=== PATIENT | female | born 1955 | race Caucasian/White ===

== ENCOUNTER → 2016-09-21 | Outpatient (CLI) | payer OTHER ==
[~2016-09-21] MED LIST: IOPAMIDOL (ISOVUE-300) 100 ML BTL IV ONE
--- NOTE | 2016-09-21 11:00 | CT ---
CT Abdomen and Pelvis Without and With Contrast History: History of probable complex cyst right kidney on prior CT. Follow up. Comparison: CT March 2016 and ultrasound June 2016. Technique: 3 mm helical images were obtained of the abdomen and pelvis from the diaphragm through the symphysis pubis. This was done without and with intravenous contrast. The post intravenous contrast images were obtained in arterial, portal venous, and delayed phases. Multiplanar reformation was perf ormed. Radiation dose reduction technique was utilized. Contrast administration was 85 mL Isovue-300 contrast. Findings: Abdomen: The lung bases are clear. No focal liver lesion. Gallbladder is unremarkable. Pancreas is no rmal in size and appearance. Calcification is seen in the spleen from prior granulomatous disease. Jace th adrenal glands are normal in size and appearance. There is a mildly complex cyst in the junction m id to inferior pole of the right kidney laterally adjacent to an area of cortical scarring. This lesi on measures 13 x 11 mm and is stable in size. Hounsfield units are approximately 40. I believe this c orrelates to the cyst seen on the ultrasound with a possible tiny septation adjacent to an area of co rtical thinning 12 x 10 mm. There is also a smaller renal cortical cyst in the medial inferior pole o f the right kidney measuring 9 mm with Hounsfield units of 5. A tiny exophytic renal cortical cyst is seen off the inferior pole laterally measuring 4 mm. No evidence for solid mass in the right kidney. There is a subtle 3 mm focus of very low signal intensity in the lateral cortex mid pole left kidney corresponding to the area of increased echogenicity on ultrasound indicating a small angiomyolipoma, benign. No suspicious solid mass is seen in the left kidney. No evidence for hydronephrosis in eithe r kidney. No significant abdominal lymphadenopathy. Pelvis: No evidence for diverticulitis. No evidence for small bowel obstruction. No significant free fluid in the pelvis. Bladder is unremarkable. No aggressive bone lesion. Impression: 13 x 11 mm benign minimally complex renal cortical cyst junction of mid to inferior raya e right kidney and another smaller 9 mm renal cortical cyst inferior pole right kidney. 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 Otherwise unremarkable CT of the abdomen and pelvis with and witho ut IV contrast. This was also reviewed by Dr. Gene Tejeda who concurs.
== END ==
LOC: FIMAGING 08:45
PROVIDERS: ATTEND Family Medicine
DX: N28.1 Cyst of kidney, acquired (principal); N28.89 Other specified disorders of kidney and ureter
CPT/HCPCS: Q9967

== ENCOUNTER 2017-09-11 10:14 | Emergency (ER) | payer OTHER ==
--- NOTE | 2017-09-11 12:24 | EDPHY ---
H & P Time Seen by Provider: 09/11/17 12:18 HPI/ROS: Chief complaint. Abdominal pain HPI. 7-year-old female with 1 day history of right lower quadrant abdominal pain. Hurts to move. No fever, vomiting, diarrhea. No urinary symptoms. Seen by regular physician this morning and concern was for appendicitis. She does have a history of diverticulitis. No chest discomfort or trouble breathing. ROS Constitutional. no fever/chills, no weakness Eyes. no problems with vision ENT. no sore throat, no nasal drainage Cardiovascular. no chest pain Respiratory. no shortness of breath, no cough Abdominal. Right lower quadrant abdominal . no problems urinating MS. no calf pain/swelling, no neck/back pain, no joint pain Skin. no rash Lymph. no swollen glands Neuro. no headache, no dizziness, no difficulty walking or with speech Past Medical/Surgical History: Diverticulitis, Social History: , nonsmoker, no alcohol Smoking Status: Former smoker Physical Exam: General Appearance: Alert pleasant well-developed female mild distress vital signs are stable Eyes: Pupils equal and round no pallor or injection. ENT, Mouth: Mucous membranes are moist. Respiratory: There are no retractions, lungs are clear to auscultation. Cardiovascular: Regular rate and rhythm. Gastrointestinal: Abdomen is soft but tender in the right lower quadrant at McBurney's point, no masses, bowel sounds normal. Neurological: Awake and alert, sensory and motor exams grossly normal. Skin: Warm and dry, no rashes. Musculoskeletal: Neck is supple nontender. Extremities symmetrical, full range of motion. Psychiatric: Patient is oriented X 3, there is no agitation. Constitutional: Initial Vital Signs Temperature (C) 37.1 C 09/11/17 10:25 Heart Rate 79 09/11/17 10:25 Respiratory Rate 18 09/11/17 10:25 Blood Pressure 141/81 H 09/11/17 10:25 O2 Sat (%) 96 09/11/17 10:25 O2 Delivery Mode Room Air Allergies/Adverse Reactions: No Known Allergies Allergy (Verified 09/11/17 10:32) Home Medications: Medication Instructions Recorded Compounded Estrogen 1 garrick TP DAILY 03/28/14 Compounded Progesterone 1 garrick TP HS 03/28/14 Sulfamethox/Tmp 800/160 mg 1 tab PO BID #14 tab 09/11/17 [Bactrim Ds] metroNIDAZOLE [Flagyl 500 mg (*)] 500 mg PO QID #28 tab 09/11/17 Medical Decision Making - Diagnostics Imaging Results: Imaging Impressions Abdomen CT 09/11/17 12:52 Impression: 1. Acute diverticulitis of the proximal sigmoid colon. 2. Appendix not identified although no secondary evidence of appendicitis. 3. No drainable abscess, bowel obstruction, or pneumoperitoneum. 4. Recommend follow-up colonoscopy when the patient's medical condition permits. Findings and recommendations discussed with Emergency Department physician, Billy Holt M.D., at 1410 hours, on September 11, 2017. Final report concurs with initial preliminary interpretation. E:amm CT abdomen cannot see appendix. It does appear she has diverticulitis of the sigmoid colon Procedures: IV normal saline. IV Invanz ED Course/Re-evaluation: I consulted and discussed the case with Dr. Myers, surgery who sees The patient in the emergency department Patient is offered admission and surgery however would like to be treated as an outpatient. The patient, Dr. Myers, and I discussed need close follow-up and will treat the diverticulitis but if she has worsening pain in the right lower quadrant did see her again. Plan is for recheck in 1 day if not improved; patient expresses understanding and agreement Differential Diagnosis: I considered urinary tract infection, diverticulitis, appendicitis - Data Points Laboratory Results: Laboratory Results 09/11/17 12:20 09/11/17 12:20 09/11/17 09/11/17 09/11/17 12:40 12:20 12:20 WBC 12.81 10^3/uL H 10^3/uL (3.80-9.50) RBC 4.60 10^6/uL 10^6/uL (4.18-5.33) Hgb 14.0 g/dL g/dL (12.6-16.3) Hct 41.8 % % (38.0-47.0) MCV 90.9 fL fL (81.5-99.8) MCH 30.4 pg pg (27.9-34.1) MCHC 33.5 g/dL g/dL (32.4-36.7) RDW 12.6 % % (11.5-15.2) Plt Count 264 10^3/uL 10^3/uL (150-400) MPV 11.2 fL fL (8.7-11.7) Neut % (Auto) 85.0 % H % (39.3-74.2) Lymph % (Auto) 9.0 % L % (15.0-45.0) Wheeler % (Auto) 5.2 % % (4.5-13.0) Eos % (Auto) 0.1 % L % (0.6-7.6) Baso % (Auto) 0.2 % L % (0.3-1.7) Nucleat RBC Rel Count 0.0 % % (0.0-0.2) Absolute Neuts (auto) 10.89 10^3/uL H 10^3/uL (1.70-6.50) Absolute Lymphs (auto) 1.15 10^3/uL 10^3/uL (1.00-3.00) Absolute Monos (auto) 0.67 10^3/uL 10^3/uL (0.30-0.80) Absolute Eos (auto) 0.01 10^3/uL L 10^3/uL (0.03-0.40) Absolute Basos (auto) 0.03 10^3/uL 10^3/uL (0.02-0.10) Absolute Nucleated RBC 0.00 10^3/uL 10^3/uL (0-0.01) Immature Gran % 0.5 % % (0.0-1.1) Immature Gran # 0.06 10^3/uL 10^3/uL (0.00-0.10) Sodium 143 mEq/L mEq/L (135-145) Potassium 4.0 mEq/L mEq/L (3.5-5.2) Chloride 104 mEq/L mEq/L (97-110) Carbon Dioxide 25 mEq/l mEq/l (22-31) Anion Gap 14 mEq/L mEq/L (8-16) BUN 15 mg/dL mg/dL (7-23) Creatinine 0.7 mg/dL mg/dL (0.6-1.0) Estimated GFR > 60 Glucose 98 mg/dL mg/dL (70-100) Calcium 10.0 mg/dL mg/dL (8.5-10.4) Urine Color YELLOW Urine Appearance CLEAR Urine pH 6.0 (5.0-7.5) Ur Specific [place] 1.017 (1.002-1.030) Urine Protein NEGATIVE (NEGATIVE) Urine Ketones 1+ H (NEGATIVE) Urine Blood 1+ H (NEGATIVE) Urine Nitrate NEGATIVE (NEGATIVE) Urine Bilirubin NEGATIVE (NEGATIVE) Urine Urobilinogen NEGATIVE EU EU (0.2-1.0) Ur Leukocyte Esterase NEGATIVE (NEGATIVE) Urine RBC 5-10 /hpf H /hpf (0-3) Urine WBC 1-3 /hpf /hpf (0-3) Ur Epithelial Cells TRACE /lpf /lpf (NONE-1+) Urine Bacteria 1+ /hpf H /hpf (NONE SEEN) Urine Mucus 2+ /lpf H /lpf (NONE-1+) Urine Glucose NEGATIVE (NEGATIVE) Medications Given: Discontinued Medications Sodium Chloride (Ns) 1,000 mls @ 0 mls/hr IV EDNOW ONE; Wide Open PRN Reason: Protocol Stop: 09/11/17 12:53 Last Admin: 09/11/17 12:25 Dose: 1,000 mls Departure - Departure Disposition: Home, Routine, Self-Care Clinical Impression: Diverticulitis Condition: Good Instructions: Diverticulitis Diet (ED), Diverticulitis (ED) Additional Instructions: Easy diet. Began antibiotics orally tomorrow. Return for worsening symptoms. Recheck in 1 day if not improving Referrals: Tabatha Berumen MD [Primary Care Provider] - 1 day, if not improved Shyam Myers MD [Medical Doctor] - 1 day, if not improved Prescriptions: metroNIDAZOLE [Flagyl 500 mg (*)] 500 mg PO QID #28 tab Sulfamethox/Tmp 800/160 mg [Bactrim Ds] 1 tab PO BID #14 tab
[2017-09-11] MEDS ORDERED: NS 1,000 ML IV ONE (12:52)
[2017-09-11 13:01] LABS: PLATELET COUNT 264 10^3/uL (150-400)
[2017-09-11] MEDS ORDERED: IOPAMIDOL (ISOVUE-300) 100 ML BTL ONE (13:29)
[2017-09-11 14:12] VITALS: RESP 16; TEMP 99
--- NOTE | 2017-09-11 16:02 | PDCONSULT ---
Director Medicare Sales Note: Chief complaint: Abdominal pain History of present illness: This is a 61-year-old woman who presents to the emergency room after being seen by primary care doctor with abdominal pain possible appendicitis. Previous history of diverticulitis treated with antibiotics successfully to 1.5 year ago. She reports several day history of diarrhea prior to having this generalized abdominal pain. She felt bloated this morning and cannot localize the pain in anyone spot. White blood cell count in the emergency room 12,000 with an exam or consistent with appendicitis and diverticulitis. CT scan of the abdomen and pelvis personally reviewed on PACS and with radiologist shows diverticulitis of the sigmoid/descending colon. There is no obvious appendicitis or free fluid in the right lower quadrant suggestive of appendiceal inflammation Past medical history: None Past surgical history: Medications: Estrogen and progesterone No known drug allergies Family history significant for heart disease in her father Social history 2 children alive and well. Smoked briefly 35 years ago. Occasional social alcohol use Review of systems significant for diarrhea otherwise reviewed and all others are negative. Objective: Alert oriented to person place time Clear to auscultation bilaterally Regular rate and rhythm Abdomen soft nondistended normoactive bowel sounds. No hepatosplenomegaly well- healed incision no herniation. No peritoneal signs but she is mildly tender to the right and left of the midline at the level of her umbilicus. Extremities without edema 2+ over 2+ dorsalis and radial pulses Skin normal turgor and tone no rashes No lymphadenitis Trachea midline no JVD Extraocular motions intact Normal affect mood 09/11/17 12:20 09/11/17 12:[address] 09/11/17 12:52 Impression: 1. Acute diverticulitis of the proximal sigmoid colon. 2. Appendix not identified although no secondary evidence of appendicitis. 3. No drainable abscess, bowel obstruction, or pneumoperitoneum. 4. Recommend follow-up colonoscopy when the patient's medical condition permits. Findings and recommendations discussed with Emergency Department physician, Billy Holt M.D., at 1410 hours, on September 11, 2017. Final report concurs with initial preliminary interpretation. E:amm Impressions/plan: Diverticulitis mild without signs of abscess or macro- perforation. Options include antibiotic therapy observation and colonoscopy at her schedule 10 year visit versus surgical intervention. My recommendation would be for antibiotic therapy with follow-up with her primary care physician' s all questions were addressed. Greater than 45 min was spent with the patient was a 50% coordinating care and counseling.
[2017-09-11] MEDS ORDERED: ERTAPENEM 1 GM VIAL IVP ONE (16:06)
[2017-09-11] MEDS ORDERED: NS 50 ML BAG IV ONE (16:11)
[2017-09-11 16:54] VITALS: BP 138/85; PULSE 84; O2SAT 97
== END 2017-09-11 16:54 | disposition home or self-care (01) ==
DX: K57.92 Diverticulitis of intestine, part unspecified, without perforation or abscess without bleeding (principal); E86.9 Volume depletion, unspecified; Z87.891 Personal history of nicotine dependence
CPT/HCPCS: 96374; J1335; Q9967

== ENCOUNTER → 2017-10-02 | Outpatient (CLI) | payer OTHER | LOC: FIMAGING 12:04 | PROVIDERS: ATTEND Family Medicine | DX: Z12.31 Encounter for screening mammogram for malignant neoplasm of breast (principal) ==

== ENCOUNTER → 2018-02-06 | Outpatient (CLI) | payer OTHER | LOC: FIMAGING 09:12 | PROVIDERS: ATTEND Family Medicine | DX: Z13.820 Encounter for screening for osteoporosis (principal); M85.89 Other specified disorders of bone density and structure, multiple sites; Z78.0 Asymptomatic menopausal state ==